=== PATIENT | female | born 1930 | race Caucasian/White ===

== ENCOUNTER 2017-02-08 10:54 | Inpatient (IN) | payer MEDICARE, OTHER ==
[~2017-02-08] VITALS: Ht 134.6 cm; Wt 45.3 kg
[~2017-02-08 10:54] MED LIST: ALBU8.5H4 IH; ATEN50TA7 PO; CALCIT PO; DICY20TA10 PO; ERGO400C PO; HYDROCHLOROTHIAZIDE PO; [UNRECOGNIZED DRUG - OTHER] PO; excedrin PO
[2017-02-08 11:00] VITALS: BP 163/90; PULSE 79; RESP 16; O2SAT 100
--- NOTE | 2017-02-08 11:26 | ED.REPORT ---
HPI-Trauma Minor / Fall Date of Service Feb 08, 2017 ED Provider: Joel Vigil MD 86 y/o female with a hx of diverticulitis, arthritis and anxiety presents to the ED complaining of left hip pain radiating to her left thigh, secondary to a ground level fall upon tripping over her bed spread, approximately 3 hours ago. Pt was not able to get up on her own due to the pain. Pt reports soreness around the injury but denies numbness, tingling, LOC, headache, nausea, vomiting , chest pain or ABD pain. Pt doesn't take any blood thinners. Nursing Notes Stated Complaint: GL FALL Chief Complaint: Extremity Trauma Nursing Notes Reviewed: Yes Allergies: Coded Allergies: Sulfa (Sulfonamide Antibiotics) (Verified Allergy, Intermediate, Rash, Itching,, 02/08/17) cyclosporine (Verified Adverse Reaction, Intermediate, WORSENING VISION, ) Scheduled Amlodipine (Amlodipine) 5 Mg Tablet 5 MG PO DAILY Ascorbic Acid (Vitamin C) 250 Mg Tab.chew 250 MG PO QID Aspirin Chew (Aspirin Chew) 81 Mg Chew 81 MG PO DAILY Atenolol (Atenolol) 50 Mg Tablet 50 MG PO BID Clorazepate Dipotassium (Clorazepate Dipotassium) 7.5 Mg Tablet 7.5 MG PO HS Erythromycin Ophth Oint (Erythromycin Ophth Oint) 3.5 Gm Oint...g. 1 APPL OP HS Hydrochlorothiazide (Hydrochlorothiazide) 25 Mg Tablet 12.5 MG PO DAILY Mineral Oil/Petrolatum,White (Refresh P.m. Ointment) 3.5 Gm Oint...g. 3.5 GM OP DAILY Multivits-Min/FA/Lycopene/Lut (Centrum Silver Tablet) 1 Each Tablet 1 EACH PO DAILY Scheduled PRN Albuterol HFA (Proair HFA) 8.5 Gm Hfa.aer.ad 2 PUFFS INHALATION Q4H PRN PRN For Shortness of Breath General Time Seen by MD: 11:22 Chief Complaint Fall Hx Obtained From: Patient Arrived By: Walk-in Onset Occurred: 1 - 4 hours ago Symptom Duration: Since onset Caused by: Fall on ground Location: Hip left Quality: Painful Severity: Current: Moderate Severity: Maximum: Moderate Recent Healthcare: No recent doctor visit Similar Sx Previous: No Past Medical History Past Medical History Diverticulitis Arthritis Anxiety Cataracts Past Surgical History Resection of colon Reports: Appendectomy, Cataract surgery, Hysterectomy Smoking History Unknown if Ever Smoker Social History Other Social History: Good social support Ambulatory Status Independent Review of Systems Musculoskeletal: Reports: Extremity pain, Joint pain Neurologic: Denies: Change LOC, Headache, Numbness Complete sys rev & neg: except as marked. Cardiovascular: Denies: Chest pain GI: Denies: Abdominal pain, Nausea, Vomiting Physical Exam Initial Vital Signs Vital Signs (First) Date Time Temp Pulse Resp B/P Pulse Ox O2 Delivery O2 Flow Rate FiO2 02/08/17 11:00 36.4 79 16 163/90 100 Room Air Initial VS: Reviewed, Vital signs normal Head / Eyes: Atraumatic, Normocephalic, PERRL ENT: Mucous membranes moist, Conjunctiva normal, No scleral icterus Respiratory: Breath sounds normal, Clear to auscultation, No respiratory distress Abdomen / GI: Soft, Non-tender, No guarding, No rebound, No distention Skin: Warm, Dry, No cyanosis Neurologic: Alert, Oriented, Nonfocal Psychiatric: Mood/affect normal, Behavior normal, Normal thought content General/Constitutional: Awake, Alert, No acute distress, Cooperative, Not toxic appearing IV in pt's left AC. Neck: Atraumatic, Full range of motion, No swelling, Non-tender, No midline vertebral tend Head / Eyes: Atraumatic, Normocephalic Scalp, face and neck atraumatic. Cardiovascular: Heart rate NL, Regular rhythm, Heart sounds NL, No gallop, No murmurs, No rubs Left foot DP and PT pulse normal Upper Extremity / MS: Atraumatic (Bilaterally ), Full range of motion Wrist / Hand: Atraumatic, Full range of motion Lower Extremity / Pelvis / MS: Atraumatic, No swelling, Neurologic intact, Vascular intact Right lower extremity atraumatic with passive ROM. Tender over left greater trocahanter. No deformity over the Left hip. Left foot atraumatic. Left tib/fib and knee atraumatic. Left lateral thigh tenderness. Ankle / Foot: Atraumatic, Full range of motion Interpretation & Diagnostics Lab Results Interpretation Result Diagram: 02/08/17 1238 02/08/17 1238 Test 02/08/17 12:38 02/08/17 12:51 02/08/17 13:35 White Blood Count 18.0th/mm3 (3.8-10.1) Red Blood Count 4.84mil/mm3 (3.90-5.20) Hemoglobin 14.3g/dL (12.0-15.6) Hematocrit 41.2% (35.0-46.0) Mean Corpuscular Volume 85.1fL (81-100) Mean Corpuscular Hemoglobin 29.5pg (27.0-35.0) Mean Corpuscular Hemoglobin Concent 34.7% (32.0-37.0) Red Cell Distribution Width 14.3% (12.3-15.4) Platelet Count 273bil/L (150-400) Neutrophils (%) (Auto) 87.0% (40-74) Lymphocytes (%) (Auto) 4.6% (14-46) Monocytes (%) (Auto) 7.8% (4-12) Eosinophils (%) (Auto) 0.1% (0-5) Basophils (%) (Auto) 0.2% (0-3) Prothrombin Time 10.4sec (8.1-12.5) Prothromb Time International Ratio 0.97ratio Sodium Level 137mEq/L (134-144) Potassium Level 3.1mEq/L (3.5-5.2) Chloride Level 96mEq/L (97-108) Carbon Dioxide Level 26mmol/L (18-29) Blood Urea Nitrogen 12mg/dL (8-27) Creatinine 0.49mg/dL (0.57-1.00) Estimat Glomerular Filtration Rate 172mL/min (>59) Glucose Level 132mg/dL (60-99) Calcium Level 9.7mg/dL (8.5-10.1) Total Bilirubin 0.5mg/dL (0.0-1.2) Aspartate Amino Transf (AST/SGOT) 21U/L (0-50) Alanine Aminotransferase (ALT/SGPT) 15U/L (0-32) Alkaline Phosphatase 108U/L (25-165) Total Protein 7.2g/dL (6.4-8.4) Albumin 4.6g/dL (3.4-5.0) Hold Pettit Top Tube Received (Received) Urine Color Straw (YELLOW) Urine Appearance Hazy (CLEAR,HAZY) Urine pH 7.5 (5.0-8.0) Urine Specific [place] 1.015 (1.003-1.035) Urine Protein Negativemg/dL (NEG,TRACE) Urine Glucose (UA) Negativemg/dL (NEGATIVE) Urine Ketones Negativemg/dL (NEGATIVE) Urine Occult Blood Negative (NEGATIVE) Urine Nitrite Negative (NEGATIVE) Urine Bilirubin Negative (NEGATIVE) Urine Urobilinogen Normalmg/dL (NORMAL) Urine Leukocyte Esterase Negative (NEGATIVE) Urine RBC 0-2/hpf (0-2) Urine WBC 0-5/hpf (0-5) Urine Epithelial Cells Occasional/hpf (NONE-MOD) Urine Crystals Amorphous phosphates Urine Bacteria None/hpf (NONE-FEW) Urine Hyaline Casts None/lpf (NONE) Urine Granular Casts None seen (NONE SEEN) Urine Waxy Casts None seen (NONE SEEN) Urine Red Blood Cell Casts None seen (NONE SEEN) Urine White Blood Cell Casts None seen (NONE SEEN) Urine Mucus None seen (None Seen) Urine Trichomonas None seen (NONE SEEN) Urine Yeast None (NONE SEEN) Urinalysis Comment None Urine Culture Reflexed Not indicated ECG Interpretation ECG Interpretation: Normal sinus rhythm. Rate 83 Normal axis Normal interval Borderline ST depression about vivian-lateral leads No QT abnormality No prior EKG for comparison Time: 13:32 Interpreted by: ED physician X-Ray Chest Interpretation Chest Xray Interpretation: IMPRESSION: No acute cardiopulmonary disease. Dictated by: Marie Marsh M.D. on 02/08/2017 at 13:24 Approved by: Marie Marsh M.D. on 02/08/2017 at 13:29 View: Portable, 1 view Interpretation / Wet Read by: Interpret - Radiologist X-Ray Interpretation Xray Interpretation: PROCEDURE: X-RAY PELVIS, ONE OR TWO VIEWS ([id number]) IMPRESSION: Moderately displaced left femoral neck fracture. Dictated by: Armin Jett M.D. on 02/08/2017 at 13:09 Approved by: Armin Jett M.D. on 02/08/2017 at 13:09 X-Ray Ordered: Pelvis Interpretation / Wet Read by: Interpret - Radiologist Xray Interpretation: IMPRESSION: Left femoral neck fracture. Dictated by: Armin Jett M.D. on 02/08/2017 at 13:10 Approved by: Armin Jett M.D. on 02/08/2017 at 13:10 X-Ray Ordered: Femur left Interpretation / Wet Read by: Interpret - Radiologist Re-Eval/Medical Decision Med Decision/Clinical Course 86 y/o female with a hx of diverticulitis, arthritis and anxiety presents to the ED complaining of left hip pain radiating to her left thigh, secondary to a GL fall upon tripping over the bed spread, approximately 3 hours ago. Pt was not able to get up on her own due to the pain. Pt reports soreness around the injury but denies numbness, tingling, LOC, headache, nausea, vomiting, chest pain and ABD pain. Pt doesn't take any blood thinners. She did not strike her head. Here in the emergency department she is in moderate pain and was treated with IV hydromorphone and IV fluids as well as Zofran for nausea. X-ray of her left hip demonstrated a moderately displaced femoral neck fracture. She had good DP and PT pulses in the affected extremity without any evidence of neurovascular deficit. These findings were discussed with Dr. Kim with orthopedic surgery who requested the patient be admitted to the hospitalist service and made nothing by mouth at midnight with plan for operative intervention in the morning. Laboratory studies are notable as below: Leukocytosis of 18, I suspect that this is due to demarginalization as I see no evidence at this time of any acute infectious process in the patient is afebrile. CBC: unremarkable CMP: notable for Potassium = 3.1 but otherwise unremarkable. Coagulation studies = normal The patient's hypokalemia was treated with 20 mEq of IV potassium chloride. Patient was made nothing by mouth at midnight and placed on maintenance fluids. At this time she is otherwise well and in no apparent distress. Her pain has been well managed. She was discussed with the admitting hospitalist and transferred in stable condition with plan for operative intervention. Re-Evaluation/Progress : Time of Eval: 12:00 Re-Evaluation/Progress Note: Pt rechecked. Informed the pt of imaging results, diagnosis and plan to admit. Pt understood and agreed witht the plan. F/U and RTER instructions given. All questions answered. Consultation #1: Referral / Consult Name: Shyam Kim MD Consulted With: Orthopedic Call Returned at: 13:26 Architectural Renderer: Will see patient, Agrees with eval, Agrees with plan Note: Dr. Kim recommends NPO at midnight and plan for surgery tomorrow. Consultation #2: Referral / Consult Name: Alejandra Cruz DO Consulted With: Hospitalist Call Returned at: 14:37 Architectural Renderer: Agrees with eval, Agrees with plan, Accepts admit Counseled Regarding: Diagnosis, Lab results, Need for admission Discharge & Departure Impression: Primary Impression: Hip fracture, left Encounter type: initial encounter Fracture type: closed Qualified Code: S72.002A - Fracture of unspecified part of neck of left femur, initial encounter for closed fracture Additional Impressions: Fall from ground level Left hip pain Leukocytosis Leukocytosis type: unspecified Qualified Code: D72.829 - Elevated white blood cell count, unspecified Hypokalemia Disposition: ADMITTED TO HOSPITAL Discharge Condition All VS Reviewed: Yes Referrals: Filiberto Frye DO (PCP) Scribe Attestation Portions of this note were transcribed by Arthur Altamirano and Tita Oakes . I, personally performed the history, physical exam and medical decision-making;I reviewed and confirmed the accuracy of the information in the transcribed note. Signed by Arthur Altamirano and Tita Oakes, Angelae. 02/08/17. 1503. copies to: Filiberto Frye Beck O MD Feb 08, 2017 11:26 Arthur Altamirano Feb 08, 2017 11:43 Tita Oakes Feb 08, 2017 15:01
[2017-02-08] MEDS ORDERED: FOLI1TAB5 PO (11:37)
[2017-02-08] MEDS ORDERED: ASPI81TA3 PO (11:37)
[2017-02-08] MEDS ORDERED: PETR3.5O OP (11:37)
[2017-02-08] MEDS ORDERED: AMLO5TAB2 PO (11:37)
[2017-02-08] MEDS: HYDROmorphone 0.5 mg/0.5 mL iSecure Syringe IVPUSH PRN ×3 (12:34→16:12)
[2017-02-08 12:41] LABS: BASOPHILS % (AUTO) 0.2 % (0-3); EOSINOPHILS % (AUTO) 0.1 % (0-5); MONOCYTES % (AUTO) 7.8 % (4-12); Mean Corpuscular Hemoglobin 29.5 pg (27.0-35.0); Mean Corpuscular Volume 85.1 fL (81-100); Platelet Count 273 bil/L (150-400)
[2017-02-08 12:57] LABS: INR 0.97 ratio
--- NOTE | 2017-02-08 13:11 | DRSVH ---
PROCEDURE: X-RAY PELVIS, ONE OR TWO VIEWS ([id number]) INDICATIONS: 86 year-old female with left hip pain after fall. TECHNIQUE: One view(s) of the pelvis acquired. COMPARISON: None. FINDINGS: Bones: Moderately displaced left femoral neck fracture is present, with varus angulation of the femor al shaft. Pelvic ring appears intact. Soft tissues: Scattered abdominal surgical clips are present. Visualized bowel gas pattern is normal . No suspicious soft tissue calcifications. IMPRESSION: Moderately displaced left femoral neck fracture. Dictated by: Armin Jett M.D. on 02/08/2017 at 13:09 Approved by: Armin Jett M.D. on 02/08/2017 at 13:09
--- NOTE | 2017-02-08 13:12 | DRSVH ---
PROCEDURE: X-RAY LEFT FEMUR, TWO VIEWS ([id number]) INDICATIONS: 86 year-old female with left hip fracture after fall. TECHNIQUE: 2 views of the femur were acquired. COMPARISON: None. FINDINGS: Bones: Left femoral neck fracture is again noted, more apparent on comparison AP pelvis. No suspiciou s lytic or blastic bony lesions. Soft tissues: No suspicious soft tissue calcifications or masses. IMPRESSION: Left femoral neck fracture. Dictated by: Armin Jett M.D. on 02/08/2017 at 13:10 Approved by: Armin Jett M.D. on 02/08/2017 at 13:10
[2017-02-08] MEDS: Lactated Ringer's 1,000 ML IV SCH ×2 (13:25→22:28)
[2017-02-08] MEDS ORDERED: Alum-Mag Hydrox-Simeth 30 mL Suspension PO PRN ×2 (13:25→16:55)
[2017-02-08] MEDS ORDERED: Ondansetron 2 mg/mL 2 mL Inj IVPUSH PRN ×2 (13:25→16:55)
[2017-02-08] MEDS ORDERED: KCl 40 mEq/D5W 500 mL 20 MEQ in IV Premix 1 EACH IV ONE (13:30)
--- NOTE | 2017-02-08 13:30 | DRSVH ---
PROCEDURE: X-RAY CHEST ONE VIEW ([id number]) INDICATIONS: FELL; HIP FRACTURE, PREOPERATIVE TECHNIQUE: One view of the chest was acquired. COMPARISON: [facility], CT, CHEST W/O CONTRAST, 08/17/2013, 10:58. [facility], CR, CHEST 2VW, 02/09/2013, 9:06. FINDINGS: Surgical changes and devices: None. Lungs and pleura: Hyperinflation suggesting COPD. There are right apical scars. No pleural effusion s or pneumothorax. Lungs are clear. Mediastinum: Mediastinal contours appear normal. Heart size is normal. Bones and chest wall: No suspicious bony lesions. Overlying soft tissues appear unremarkable. IMPRESSION: No acute cardiopulmonary disease. Dictated by: Marie Marsh M.D. on 02/08/2017 at 13:24 Approved by: Marie Marsh M.D. on 02/08/2017 at 13:29
[2017-02-08 13:42] VITALS: BP 143/76; PULSE 84; RESP 16; O2SAT 94
[2017-02-08 13:52] LABS: APPEARANCE,URINE HAZY (CLEAR,HAZY); COLOR,URINE STRAW (YELLOW); OCCULT BLOOD,URINE NEGATIVE (NEGATIVE); PH,URINE 7.5 (5.0-8.0); UROBILINOGEN,URINE NORMAL (NORMAL)
[2017-02-08] MEDS ORDERED: ALBU8.5H2 INHALATION (15:20)
[2017-02-08] MEDS ORDERED: HYDR25TA4 PO (15:20)
[2017-02-08] MEDS ORDERED: ATEN50TA PO (15:20)
[2017-02-08] MEDS ORDERED: CLOR7.5T3 PO (15:20)
[2017-02-08] MEDS ORDERED: MULT-1073 PO (15:21)
[2017-02-08] MEDS ORDERED: ERYT1OIN7 OP (15:21)
[2017-02-08] MEDS ORDERED: ASCO250T7 PO (15:22)
[2017-02-08 15:30] VITALS: BP 135/60; PULSE 83; RESP 16; O2SAT 96
[2017-02-08 15:35] VITALS: BP 149/73; PULSE 84; RESP 17; O2SAT 96
--- NOTE | 2017-02-08 15:36 | NUR ---
TO [facility] patient transfer from ER to [facility]. Report received from ER nurse. patient is still in the ER.
--- NOTE | 2017-02-08 16:04 | NUR ---
To [facility] patient arrived approx 1550 to [facility].
[2017-02-08 16:52] VITALS: BP 146/75; PULSE 77; RESP 18; O2SAT 92
[2017-02-08] MEDS ORDERED: Polyethylene Glycol (PEG) 17 Gm Powder PO PRN (16:55)
[2017-02-08] MEDS ORDERED: HYDROcodone-APAP 5-325 mg Tablet PO PRN (16:55)
[2017-02-08] MEDS ORDERED: HYDROmorphone 0.5 mg/0.5 mL iSecure Syringe IVPUSH PRN (17:05)
[2017-02-08] MEDS ORDERED: Potassium Chloride 20 mEq SR Tablet PO ONE (17:10)
--- NOTE | 2017-02-08 17:20 | PCM.HPMED ---
Subjective Date of Service Feb 08, 2017 Primary Provider: Admitting Physician: Janett Qureshi MD Primary Care Physician: Filiberto Frye DO Attending Physician: Janett Qureshi MD Admit Status: From the Emergency Department Chief Complaint: Fall with subsequent left hip pain History of Present Illness: Earlier today she was making the bed and tripped on a part of the bedspread that was down on the floor. She fell and immediately noted left hip pain. She is not aware of any other injuries and says she did not hit her head. Prior to falling and she did not note lightheadedness, loss of consciousness, palpitations or chest pain. Review of Systems: It is unremarkable, no recent acute illnesses or other complaints. Allergies Coded Allergies: Sulfa (Sulfonamide Antibiotics) (Verified Allergy, Intermediate, Rash, Itching,, 02/08/17) cyclosporine (Verified Adverse Reaction, Intermediate, WORSENING VISION, ) Home Medications Patient is not able to list her medications, see med reconciliation PMH Hypertension Chronic anxiety and/or insomnia Bronchiectasis (per patient) Diverticulitis Denies any heart disease or diabetes Surgical History Colectomy for diverticular disease ADRIAN BSO Appendectomy "eye plugs" - apparently to tear ducts Family History Father in his 60s of an PR Mother had severe arthritis and in the detention when her "heart gave out" Social History Hx Alcohol Use: No Hx Substance Use: No Hx Tobacco Use: No Smoking Status: Unknown if Ever Smoker Additional Information Has been 57 years, has one daughter living in [place] but she is currently vacationing in [place] Exam Vital Signs Vital Sign - Last Date Time Temp Pulse Resp B/P Pulse Ox O2 Delivery O2 Flow Rate FiO2 02/08/17 16:52 37.1 77 18 146/75 92 Room Air Exam General: Alert and oriented, no acute distress HEENT: unremarkable Neck: No JVD, carotids 1+ Heart: Regular, no extra sounds heard Lungs: Clear anteriorly and laterally Abdomen: Soft, non-tender, bowel tones present, no masses or apparent palatal splenomegaly Extremities: No pedal edema Neuro: No apparent deficits, and carousel attendant are strong and equal Lab and Diagnostics Result Diagram: 02/08/17 1238 02/08/17 1238 12-lead ECG I am unable to find a copy of her EKG but by ED physician report that shows normal sinus rhythm and some questionable mild ST depression Assessment & Plan # Left femoral neck fracture - surgery is planned for tomorrow - NPO after midnight - will hold amlodipine and HCT - per request of ortho T&C for 2 units, and Ancef 2 mg IV for OR ordered - SCD's for DVT prophylaxis, then as per ortho after surgery # Hypokalemia, most likely due to HCTZ - hold HCTZ until improved - IVF NS w 40 KCl at 100 per hr (pharmacist will order) - oral dose this isabell if she can tolerate (having some nausea with narcotics) - recheck in am # Leukocytosis, may be reactive due to stress, no evidence of infection, UA and CXR negative - recheck in am # Mildly elevated RBS - recheck in am # Chronic HTN - as noted above hold Amlodipine prior to surgery tomorrow and hold HCTZ until K improves - cont Atenolol # "Anxiety" (per patient) vs Chr insomnia - Cont Chloraxepate VTE Mechanical Devices: Intermittant Pneumatic CD Resuscitation Status: CPR: Attempt Resuscitation Janett Qureshi MD Feb 08, 2017 17:20
[2017-02-08] MEDS ORDERED: CeFAZolin Inj 1 GM in IV Premix 1 EACH IV ONE (17:30)
[2017-02-08] MEDS: Potassium Chloride Inj 40 MEQ in 0.9% Sodium Chloride 1,000 ML IV SCH (17:46)
--- NOTE | 2017-02-08 17:50 | NUR ---
mentation patient is alert and oriented X3. Able to make needs known. C/o left hip pain 10/10 and nausea. PRN Dilaudid and anti emetic given as ordered with effective results. patient is eating meal at bed side. IV fluids as ordered. patient NPO after mid night. Dr. Kim at bed side. per doctor surgery tomorrow at 930. patient aware. ICe to left hip.
--- NOTE | 2017-02-08 19:05 | CONS ---
[address] [address] CONSULTATION REPORT PATIENT: WILLOW ATKINS : 1930 MR#: [id number] ADMIT: 02/08/2017 JOB ID: [id number] DATE OF SERVICE: 02/08/2017 CPT code 13579-98, decision for surgery. CHIEF COMPLAINT: This is an 86-year-old female, whom I was asked to see by the emergency department staff as well as by Dr. Janett Qureshi for displaced left femoral neck fracture. The patient was making her bed, tripped over the bedspread, and fell to the floor, sustaining a displaced left femoral neck fracture. The patient denies any loss of consciousness. She is brought to the emergency department. There was no evidence of any syncopal event and she denied any dizziness prior to falling. ALLERGIES: 1. SULFONAMIDE and with rash. 2. She also has allergy to CYCLOSPORINE. 3. RESTASIS. MEDICATIONS: The patient takes amlodipine, vitamin C, chewable aspirin 81 mg a day, atenolol, clorazepate di-potassium, erythromycin ophthalmic ointment, hydrochlorothiazide, mineral oil, petroleum eye ointment for dry eye, and multiple vitamin. P.r.n. medications include an albuterol inhaler. PAST MEDICAL HISTORY: The patient has history of diverticulitis, arthritis, anxiety, and prior history of cataracts. PRIOR SURGERY HISTORY: He has had an appendectomy, cataract surgery, and hysterectomy. Smoking history unknown. REVIEW OF SYSTEMS: HEENT: Denies any blurring of vision or dizziness. Does have a history of dry eyes. Her mouth is currently dry since she did have some medication for nausea. Respiratory: No shortness of breath. Cardiovascular: No chest pain. GI: She does have some nausea but no vomiting. Musculoskeletal: Left hip pain with a left femoral neck fracture. Neurologic. The patient appears to be oriented. No headache or dizziness. Psychiatric: No anxiety or depression clinically at this time. PHYSICAL EXAMINATION: 134 cm, 45 kg female. Temperature 37.1, pulse 77, respiration 18, blood pressure 146/75, pulse ox 92 on room air. The patient is alert and oriented. She does have some nausea with the recent medications. Lower extremities: Good peripheral circulation. Left hip: Skin is dry and intact. Left leg is shortened and rotated. The patient appears to be resting comfortably in bed. Patient is able to move her toes. She denies any numbness or tingling. LABORATORY TESTING: White count of 10,000, hemoglobin 14.3, hematocrit 41.2, platelet count 273,000. PT 10.4. INR and 0.97. Sodium 137, potassium 3.1. The patient has been ordered some potassium. Chloride 96, CO2 26, BUN 12, creatinine 0.49, glucose random 132. Liver function tests within normal limits. Urinalysis: Specific gravity 1.015, pH 7.50, 0-5 white cell, 0-2 red blood cells. No bacteria. Patient had EKG in the emergency department. She had normal sinus rhythms, normal interval. No QT abnormality. Chest x-ray: No acute cardiopulmonary disease. X-rays of the pelvis and hip show that she has a displaced left femoral neck fracture. Femur films show the remaining portion of the femur is intact. IMPRESSION: Displaced left femoral neck fracture. PLAN: I have informed the patient for the risks and benefits of surgery. No guarantees are made. I have explained the risks for bleeding, infection, pain, and stiffness, possibility for damage to surrounding neurovascular structures, potential for dislocation of the prosthesis and even a fracture of the femur during the procedure as well as even the potential for dislocation of the prostheses or fracture below the prosthesis if the patient should fall again. There is also potential for DVT, pulmonary emboli, [place], and other significant cardiopulmonary event or even stroke. The goal is to replace the femoral head and give the patient a hemiarthroplasty that she may be able to ambulate on soon postoperatively. I have explained the risks and benefits of surgery to the patient. She has agreed to the above and consent has been signed. I have discussed the case with the hospitalist, Dr. Janett Qureshi and she will make the patient n.p.o. after midnight. The patient will also be ordered Ancef 2 g IV to be given preoperatively in the operating room tomorrow. She should be placed on SCDs for DVT prophylaxis and postoperatively she may be started on subcu Lovenox or subcu heparin for DVT prophylaxis as well as the SCD compression pumps. We will proceed with the surgery tomorrow. The patient is somewhat dehydrated. Will get some IV fluid tonight as well. CC: [facility]
[2017-02-08 19:45] VITALS: BP 148/76; PULSE 74; RESP 16; O2SAT 94
[2017-02-08] MEDS ORDERED: Albuterol 2.5 mg/3 mL Inhalation Solution NEB PRN (20:00)
[2017-02-08] MEDS: ALPRAZolam 0.5 mg Tablet PO SCH (21:13)
[2017-02-08] MEDS: Ascorbic Acid 500 mg Tablet PO SCH (21:15)
[2017-02-09] VITALS (10 sets, daily range): BP systolic 99–148; BP diastolic 63–81; PULSE 62–89; RESP 10–18; O2SAT 93–97
[2017-02-09] MEDS: Potassium Chloride Inj 40 MEQ in 0.9% Sodium Chloride 1,000 ML IV SCH (03:49)
[2017-02-09] MEDS: Ascorbic Acid 500 mg Tablet PO SCH ×4 (05:44→21:54)
[2017-02-09 06:26] LABS: Mean Corpuscular Hemoglobin 29.3 pg (27.0-35.0); Mean Corpuscular Volume 85.1 fL (81-100)
[2017-02-09] MEDS ORDERED: CeFAZolin Inj 2,000 MG in Dextrose 5% 50 ML IV ONE (09:00)
--- NOTE | 2017-02-09 10:02 | NUR ---
Pre-Op/Pain Patient reports pain only with movement, declines pain meds at this time. Dr. Kim in room for pre-op visit and consent with patient at this time. Marked operative site and patient agreeable to plan. IVF NS+40K @100mls/hr currently infusing. Awaiting OR report.
[2017-02-09] MEDS: Lactated Ringer's 1,000 ML IV SCH ×2 (10:21→16:45)
--- NOTE | 2017-02-09 10:45 | NUR ---
Off Unit Patient to OR at this time.
[2017-02-09] MEDS ORDERED: Lactated Ringer's 1,000 ML IV ONE ×2 (10:47→14:36)
[2017-02-09] MEDS ORDERED: Lactated Ringer's 1,000 ML IV SCH (12:18)
[2017-02-09] MEDS ORDERED: Lactated Ringer's 500 ML IV PRN (12:18)
--- NOTE | 2017-02-09 12:18 | PCM.HPANE ---
Patient Data Date of Service: Feb 09, 2017 Surgeon Admitting Provider:Janett Qureshi MD Attending Provider:Janett Qureshi MD Primary Care Physician:Filiberto Frye DO Other Provider: Reason for Visit Left Hip Fracture Ht/WT & BMI Height (Feet): 4 Height (Inches): 5.00 Weight (Kilograms): 45.000 Body Mass Index 24.69 Allergies Coded Allergies: Sulfa (Sulfonamide Antibiotics) (Verified Allergy, Intermediate, Rash, Itching,, 02/08/17) cyclosporine (Verified Adverse Reaction, Intermediate, WORSENING VISION, ) Past Anesthesia History Anesthesia History: Denies:: Anesthesia Reactions Diabetes History Hx Diabetes?: No MRSA MRSA: No Medications Hypertension Medication: Yes Home Meds Incl Beta Kristie: Yes Date Beta Kristie Taken: Feb 08, 2017 Time Beta Kristie Taken: 20:00 Reported Medications Ascorbic Acid (Vitamin C)250 Mg Tab.sktr583 Mg PO QID 30 Days Ref 0 02/08/17 Multivits-Min/FA/Lycopene/Lut (Centrum Silver Tablet)1 Each Tablet1 Each PO DAILY 02/08/17 Erythromycin Ophth Oint 3.5 Gm Oint...g.1 Appl OP HS #1 TUBE Ref 0 02/08/17 Albuterol HFA (Proair HFA)8.5 Gm Hfa.aer.ad2 Puffs INHALATION Q4H PRN For Shortness of Breath #1 INHALER 02/08/17 Hydrochlorothiazide 25 Mg Ftqnsd69.5 Mg PO DAILY 30 Days Ref 0 02/08/17 Clorazepate Dipotassium 7.5 Mg Tablet7.5 Mg PO HS 02/08/17 Atenolol 50 Mg Dydfyr78 Mg PO BID #30 TABLET Ref 0 02/08/17 Aspirin Chew 81 Mg Chew81 Mg PO DAILY Ref 0 02/08/17 Mineral Oil/Petrolatum,White (Refresh P.m. Ointment)3.5 Gm Oint...g.3.5 Gm OP DAILY EYES 02/08/17 Amlodipine 5 Mg Tablet5 Mg PO DAILY Ref 0 02/08/17 Discontinued Reported Medications Folic Acid/Mv,Fe,Other Min (Centrum Chewable Tablet)1 Each Tab.chew1 Each PO DAILY 02/08/17 Ergocalciferol-Expunged Drug, Do Not Renew! (Vitamin D-Expunged Drug, Do Not Renew!)400 Unit Ypliphp256 Unit PO AM 08/16/11 Calcium Citrate-Expunged Drug, Do Not Renew! (Citrical-Expunged Drug, Do Not Renew!)250 Mg Ycgplp945 Mg PO AM 08/16/11 Albuterol-Expunged Drug, Do Not Renew! 8.5 Gm Hfa.aer.ad2 Puffs IH PRN 08/16/11 [excedrin] No Conflict Check2 Tab PO Q3-4HP 08/16/11 [clorazipate] No Conflict Check7.5 Mg PO HS 08/16/11 Dicyclomine-Expunged Drug, Do Not Renew! 20 Mg Znegnk60 Mg PO DAILY 08/16/11 [hydochlorothiazide] 25 No Conflict Check12.5 Mg PO DAILY 08/16/11 Atenolol-Expunged Drug, Do Not Renew! 50 Mg Uzrjin14 Mg PO BID 08/16/11 History History of ENT Problems?: Yes HEENT History: Positive for:: Cataracts (SURGERY) Dysphagia (SLIGHT DYSPHAGIA, NO CORRECTION) Denies:: Glaucoma Sinus Problem Denture Type: Full- Upper Teeth Condition: Tooth Decay Hx of Heart Problems?: Yes Cardiovascular History: Positive for:: Hypertension Denies:: Cardiac Surgery Chest Pain Congestive Heart Failure Edema Heart Murmur Irregular Heartbeat Pacemaker Thrombophlebitis Hx of Respiratory Problem?: Yes Respiratory History: Positive for:: Dyspnea Denies:: Asthma COPD Chest Surgery Emphysema Hemoptysis Pneumonia Tuberculosis Hx Neurologic Problems?: Yes Neurological History: Positive for:: Dizziness (RELATED TO MEDICINE SE) Denies:: Alzheimer's Disease CVA Dementia Headaches Parkinson's Disease Seizures Hx of GI Problems?: Yes Hx of Problems?: Yes Genitourinary History: Positive for:: Urinary Tract Infection Denies:: HX of Hemodialysis Kidney Stones HX of Peritoneal Dialysis: No Female Hx: Denies:: Currently Endometriosis Pelvic Inflammatory Problems with Breasts? Hx Musculoskeletal Problems?: Yes Musculoskeletal History: Positive for:: Musculoskeletal Trauma (FALL WITH L HIP FRACTURE) Denies:: Back Injury (NECK ARTHRITIS) Joint Replacement Hx of Psycho/Social Problems?: Yes Psycho Social History: Positive for:: Anxiety Hx Depression Denies:: Bipolar Disorder Suicide Attempt Hx Surgeries?: Yes (resection of colon, appendix, hysterectomy, cataract,) Hx Any Other Health Problems?: No Other History: Positive for:: Hospitalization (L HIP FRACTURE, DIVERTICULITIS) Denies:: Cancer Endocrine Disease Thyroid Disease History Blood Transfusions: Positive for:: Accept Blood Products? Blood Transfusions Denies:: Blood Transfuse Reaction Hx Diabetes: No Hx Alcohol Use: NoHx Substance Use: No Smoking Status: Unknown if Ever Smoker Have You Smoked inLast 12 mo: No Stop/Bang Treated for Sleep Apnea?: No Do You Have a CPAP Machine?: No S-Snoring: Do You Snore Loudly: Yes T-Tired: feel tired, fatigued: No O-Obsered: Observed not breath: No P-Blood Pressure: treated: Yes B- Body Mass Index > 35 kg/m2: No A- Age over 50: Yes N- Neck Large Circumference: No G- Gender Male: No KERLINE Total Score: 2 KERLINE Risk Assessment: Low Risk, <3 Yes Risk Assessment Category Category 1A: Patient has history of documented sleep apnea, and HAS NOT received any narcotic, sedative or anesthesia administration during this stay. Category 1B: Patient has history of documented sleep apnea, and HAS received any narcotic , sedative or anesthesia administration during this stay Category 2: Patient has SUSPECTED Obstructive Sleep Apnea, and HAS received any narcotic , sedative or anesthesia administration during this stay. Category 3: Patient has SUSPECTED Obstructive Sleep Apnea and HAS NOT received narcotic, sedative or anesthesia administration during this stay. Category 4: Outpatient in Procedural Areas with known sleep apnea or who screen positive for High Risk via the STOP/BANG questionnaire. Exam Exam Vital Signs Vital Signs Date Time Temp Pulse Resp B/P Pulse Ox O2 Delivery O2 Flow Rate FiO2 02/09/17 05:09 36.7 71 16 146/72 95 Room Air General Appearance: Alert HEENT/AIRWAY: MP 2 Lungs: Clear to Auscultation Heart: Exam Unremarkable Meds/Labs/Diagnostics Admission Meds Current Medications Lactated Ringer's 1,000 ml @ 100 mls/hr Q10H IV Last administered on 10:21; Start 02/08/17 at 13:25 Potassium Chloride In D5W 20 meq/Premix 250 ml @ 125 mls/hr Q2H ONCE IV Last administered on 02/08/17 14:10; Start 02/08/17 at 13:30; Stop 02/08/17 at 15:29 ; Status DC Potassium Chloride/Sodium Chloride (Potassium Chloride Inj/ Normal Saline) 1, 020 ml @ 100 mls/hr [id number] IV Last administered on 02/09/17 03:49; Start at 17:05 Atenolol (Tenormin) 50 mg BID PO Last administered on 02/08/17 21:13; Start at 20:30 Ascorbic Acid (Vitamin C) 250 mg QID PO Last administered on 02/08/17 21:15; Start 02/08/17 at 21:30 Alprazolam (Xanax) 0.5 mg HS PO Last administered on 02/08/17 21:13; Start at 21:00 Potassium Chloride (K-Dur) 20 meq ONCE ONCE PO Last administered on 02/08/17 17:46; Start 02/08/17 at 17:10; Stop 02/08/17 at 17:25; Status DC Labs Test 02/08/17 12:38 02/08/17 12:51 02/08/17 13:35 02/09/17 05:50 Neutrophils (%) (Auto) 87.0% (40-74) Lymphocytes (%) (Auto) 4.6% (14-46) Monocytes (%) (Auto) 7.8% (4-12) Eosinophils (%) (Auto) 0.1% (0-5) Basophils (%) (Auto) 0.2% (0-3) Prothrombin Time 10.4sec (8.1-12.5) Prothromb Time International Ratio 0.97ratio Total Bilirubin 0.5mg/dL (0.0-1.2) Aspartate Amino Transf (AST/SGOT) 21U/L (0-50) Alanine Aminotransferase (ALT/SGPT) 15U/L (0-32) Alkaline Phosphatase 108U/L (25-165) Total Protein 7.2g/dL (6.4-8.4) Albumin 4.6g/dL (3.4-5.0) Hold Pettit Top Tube Received (Received) Urine Color Straw (YELLOW) Urine Appearance Hazy (CLEAR,HAZY) Urine pH 7.5 (5.0-8.0) Urine Specific Viola 1.015 (1.003-1.035) Urine Protein Negativemg/dL (NEG,TRACE) Urine Glucose (UA) Negativemg/dL (NEGATIVE) Urine Ketones Negativemg/dL (NEGATIVE) Urine Occult Blood Negative (NEGATIVE) Urine Nitrite Negative (NEGATIVE) Urine Bilirubin Negative (NEGATIVE) Urine Urobilinogen Normalmg/dL (NORMAL) Urine Leukocyte Esterase Negative (NEGATIVE) Urine RBC 0-2/hpf (0-2) Urine WBC 0-5/hpf (0-5) Urine Epithelial Cells Occasional/hpf (NONE-MOD) Urine Crystals Amorphous phosphates Urine Bacteria None/hpf (NONE-FEW) Urine Hyaline Casts None/lpf (NONE) Urine Granular Casts None seen (NONE SEEN) Urine Waxy Casts None seen (NONE SEEN) Urine Red Blood Cell Casts None seen (NONE SEEN) Urine White Blood Cell Casts None seen (NONE SEEN) Urine Mucus None seen (None Seen) Urine Trichomonas None seen (NONE SEEN) Urine Yeast None (NONE SEEN) Urinalysis Comment None Urine Culture Reflexed Not indicated White Blood Count 10.2th/mm3 (3.8-10.1) Red Blood Count 4.51mil/mm3 (3.90-5.20) Hemoglobin 13.2g/dL (12.0-15.6) Hematocrit 38.4% (35.0-46.0) Mean Corpuscular Volume 85.1fL (81-100) Mean Corpuscular Hemoglobin 29.3pg (27.0-35.0) Mean Corpuscular Hemoglobin Concent 34.4% (32.0-37.0) Red Cell Distribution Width 14.4% (12.3-15.4) Platelet Count 238bil/L (150-400) Sodium Level 134mEq/L (134-144) Potassium Level 5.1mEq/L (3.5-5.2) Chloride Level 100mEq/L (97-108) Carbon Dioxide Level 22mmol/L (18-29) Blood Urea Nitrogen 10mg/dL (8-27) Creatinine 0.39mg/dL (0.57-1.00) Estimat Glomerular Filtration Rate 224mL/min (>59) Glucose Level 112mg/dL (60-99) Calcium Level 9.1mg/dL (8.5-10.1) Plan Impression Patient chart reviewed, patient interviewed and anesthestic plan with risks, benefits, and alternatives discussed, and informed consent obtained. ASA Physical Status: ASA2 Mod Systemic Disease Anesthetic Plan: SAB Bene/Risks/Altern/Consents: Yes HP Complete Prior to Induction: Yes Mark Lopez MD Feb 09, 2017 12:18
[2017-02-09] MEDS ORDERED: EPHEDrine Sulfate 50 mg/mL Inj IVPUSH PRN (12:20)
[2017-02-09] MEDS ORDERED: HYDROmorphone 1 mg/mL Inj IVPUSH PRN ×2 (12:20→14:40)
[2017-02-09] MEDS ORDERED: Phenylephrine 10,000 mCg/mL Inj IVPUSH PRN (12:20)
[2017-02-09] MEDS ORDERED: Ondansetron 2 mg/mL 2 mL Inj IVPUSH PRN ×2 (12:20→14:40)
[2017-02-09] MEDS ORDERED: MetoCLOpramide 5 mg/mL 2 mL Inj IVPUSH PRN (12:20)
[2017-02-09] MEDS ORDERED: fentaNYL-PF 50 mCg/mL 2 mL Inj IVPUSH PRN (12:20)
[2017-02-09] MEDS ORDERED: Dexamethasone 4 mg/mL Inj IVPUSH PRN (12:20)
--- NOTE | 2017-02-09 13:13 | DRSVH ---
PROCEDURE: X-RAY PELVIS ONE OR TWO VIEWS ([id number]) INDICATIONS: SURGERY PLACEMENT TECHNIQUE: Intra-operative view of the pelvis and hip acquired. COMPARISON: [facility], CR, XR PELVIS 1 OR 2VW, 02/08/2017, 12:32. FINDINGS: Bones: Intraoperative devices prior to placement of arthroplasty prostheses are in expected position s. No fractures or suspicious bony lesions. Soft tissues: Overlying surgical retractors are present, along with other intraoperative changes. IMPRESSION: Normal alignment of intraoperative devices are in preparation for placement of final comp onents of left total hip arthroplasty. Dictated by: Kal Cherry M.D. on 02/09/2017 at 13:11 Approved by: Kal Cherry M.D. on 02/09/2017 at 13:12
[2017-02-09] MEDS ORDERED: Bupivacaine 0.5%/EPI 50 mL Inj INFILTRATE ONE (13:34)
[2017-02-09] MEDS ORDERED: EPHEDrine/NS 5 mg/mL 5 mL Syringe ONE (13:37)
[2017-02-09] MEDS ORDERED: Phenylephrine 10,000 mCg/mL Inj ONE (13:37)
[2017-02-09] MEDS ORDERED: Propofol 10,000 mCg/mL 20 mL Inj ONE (13:37)
--- NOTE | 2017-02-09 14:12 | NUR ---
pt is in OR Addendum: 02/09/17 at 1412 by CRISTEL EUBANKS CNA Amended: Links added.
[2017-02-09] MEDS ORDERED: Polyethylene Glycol (PEG) 17 Gm Powder PO PRN (14:40)
[2017-02-09] MEDS ORDERED: hydrOXYzine Pamoate 25 mg Capsule PO PRN (14:40)
[2017-02-09] MEDS ORDERED: HYDROcodone-APAP 5-325 mg Tablet PO PRN (14:40)
[2017-02-09] MEDS ORDERED: Magnesium Hydroxide 10 mL Oral Concentration PO PRN (14:40)
[2017-02-09] MEDS ORDERED: diphenhydrAMINE 25 mg Capsule PO PRN (14:40)
[2017-02-09] MEDS ORDERED: Sodium Biphos-Phos 133 mL Enema RECTAL PRN (14:40)
--- NOTE | 2017-02-09 15:13 | DRSVH ---
PROCEDURE: X-RAY PELVIS W/LAT HIP (LT) ([id number]) INDICATIONS: status post left hip bipolar hemiarthroplasty TECHNIQUE: AP pelvis and lateral view of the left hip acquired. COMPARISON: [facility], CR, XR PELVIS 1 OR 2VW, 02/09/2017, 12:33. [facility], CR, XR FEMUR 2VW LT, 02/08/2017, 12:32. FINDINGS: Bones: Patient is status post left hip arthroplasty, with hardware components in expected positions. The hip joint appears congruent. The visualized bony structures appear intact. Soft tissues: Overlying postoperative changes are noted. No suspicious soft tissue densities. IMPRESSION: Normal alignment after left total hip arthroplasty. 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 Dictated by: Kal Cherry M.D. on 02/09/2017 at 15:11 Approved by: Kal Cherry M.D. on 02/09/2017 at 15:12
--- NOTE | 2017-02-09 15:24 | NUR ---
Social Work:attempted initial assessment: Data:Pt is a 86 y/o female who was admitted on 02/08/17 for left hip fracture per H&P. Pt's insurance is [employer] and PCP is Filiberto Frye DO. EMR reviewed. SW attempted to see pt at bedside, but pt currently at the OR. Pt will likely have PT evaluation tomorrow. Anticipate pt will need SNF at discharge. SW to follow up with pt and complete assessment tomorrow. SW will continue to follow. Assessment:Pt who is independent at baseline. Plan:SW to follow up with pt tomorrow post surgery for assessment. SW will continue to follow. VERNA Kaur
--- NOTE | 2017-02-09 15:56 | PCM.ANEP1 ---
Post Anesthesia Phase 1 PACU Phase 1 Assessment Date of Service: Feb 09, 2017 Vital Signs Vital Signs Date Time Temp Pulse Resp B/P Pulse Ox O2 Delivery O2 Flow Rate FiO2 02/09/17 15:27 36.5 74 16 95 Room Air 02/09/17 15:10 72 14 134/78 96 Room Air 02/09/17 15:00 68 14 120/75 97 Room Air 02/09/17 14:50 64 14 140/73 97 Room Air 02/09/17 14:40 62 16 129/76 97 Room Air 02/09/17 14:36 36.0 64 10 129/70 97 Room Air Anesthetic Administered: SAB Level of Alertness: Awake, talking Pain: No Pain Scale Score: 10 Nausea or Vomiting: No Cardiovascular Function and Hy: Yes Oxygen Delivery: Room Air Lungs: Clear to Auscultation Mark Lopez MD Feb 09, 2017 15:56
--- NOTE | 2017-02-09 16:04 | OP ---
[address] [address] OPERATIVE REPORT PATIENT: WILLOW ATKINS : 1930 MR#: [id number] ADMIT: 02/08/2017 JOB ID: [id number] DATE OF SURGERY: PREOPERATIVE DIAGNOSIS(ES): Displaced left femoral neck fracture. ICD - 10 Code S72.002A POSTOPERATIVE DIAGNOSIS(ES): ICD-10 Code S72.002A Displaced left femoral neck fracture. PROCEDURE: Left hip cemented bipolar hemiarthroplasty for treatment of femoral neck fracture. CPT code 89552C. SURGEON: hSyam Kim MD. ANESTHESIA: Spinal. CHEF KITCHEN MANAGER: ISAI Dyson. Can was an integral part of the procedure to help with retraction and positioning intraoperatively to place the prosthesis. IMPLANTS UTILIZED: Depuy Shackelford stem, #2 stem, 45 mm cup, 28 mm head, +1.5 neck, a small canal plug and central stabilizer tip. ESTIMATED BLOOD LOSS: 100 mL. DRAINS: None. COMPLICATIONS: None. INDICATIONS: This is an 86-year-old female who tripped over her bedspread, sustaining a ground-level fall and a displaced left femoral neck fracture. PROCEDURE: Under adequate spinal anesthetic, the patient was carefully placed on the operating room table in the right lateral decubitus position with the left hip up. Left hip was prepped and draped in sterile fashion. After appropriate time-out was called, incision was made for a posterolateral approach to the hip. Incision was carried down to the tensor fascia elana. Charnley retractor was placed in the wound. The piriformis tendon and external rotators were identified as well as the sciatic nerve. The piriformis tendon was released off the proximal femur and tagged with a suture for later repair. A portion of the external rotators was also tagged and released off the proximal femur for later repair. The hip capsule was then incised in a T-fashion for later repair. The femoral head was then removed from the acetabulum with a corkscrew. There did not appear to be any acetabular damage. Any small bone fragments were also removed.It was sized to a 45 mm head. Attention was next turned to the proximal femur. Some soft tissue was removed from the proximal portion of the femur around the neck. The femoral neck was then cut with the alignment guide. The box toe buffer was used initially to lateralize the cut. The medullary canal was then reamed with the canal reamer and then utilizing the lateralizer that was reamed over the edge of the greater trochanter. The patient had a relatively small canal. First, a #1 rasp was utilized and then a #2 rasp, and tis seemed to fill the canal relatively well with no motion. Previously, the removed femoral head was sized and it was felt that a 45 mm cup would be the best size. A 45 mm cup was then tried with a +1.5 neck length and then reduced into position. This appeared to be stable with passive range of motion of the hip with no instability. The prosthetic components were subsequently removed. The femoral canal was irrigated and brushed with a canal brush. The level of the implant was sized in order to place the central canal plug in appropriate position. The canal plug was placed in the femur. Again, the canal was slightly irrigated and then it was dried with a canal sponge. The SmartSet bone cement with moderate viscosity was utilized, using two bags of cement. It was placed in the femoral canal and utilized with the cement gun. The cement was subsequently pressurized. The prosthesis was cemented into position in the proper amount of anteversion. Also please note that after the initial femoral cut was made, the femoral cut was smoothed with the calcar reamer. Any excess cement was subsequently removed. Once the cement had hardened, again the acetabulum was irrigated and the soft tissues were irrigated for any loose cement. The 45 mm bipolar cup with the +1.5 mm neck and the 28 mm head were then tapped into position. The hip was reduced and placed through a range of motion and felt to be stable. The hip capsule was then repaired with interrupted [id number]-ka-[id number] sutures of #1 Ethibond. The hip was then placed on Hyman stand with a pillow in slight abduction. The external rotators were reattached with Ethibond to the edge of the femur and the piriformis tendon was repaired to the edge of the of the femur with Ethibond. Care was taken to protect the sciatic nerve throughout the procedure. Also note that an intraoperative x-ray was taken with a temporary prostheses in position, noting good position of the femoral cut and position of the prosthesis. The subcutaneous layers were irrigated with antibiotic solution. The tensor fascia elana was closed with hxesqj-da-eqpwe sutures of #1 Vicryl. This soft tissue superficial layers were closed with interrupted sutures of 0 and 2-0 Vicryl, and the skin was reapproximated with a running subcuticular suture of 3-0 V-Loc suture. Mastisol and Steri-Strips were applied. Dry sterile dressing was applied. The patient was carefully taken off the table and placed in a hip abduction pillow. The patient tolerated the procedure well. Permanent x-rays in the recovery room confirmed good position of the prosthesis. PLAN: The patient may be out of bed tomorrow and she may start therapy for ambulation, partial weightbearing with walker. She will receive postoperative DVT prophylaxis as well as postoperative antibiotics. The patient may be seen again in the office in two weeks for wound check by one of the PAs and I will see her back in followup in six weeks. Will need x-rays on followup. CC: [facility] CC: Evgeny Castro
--- NOTE | 2017-02-09 16:12 | PCM.PNMED ---
Subjective Date of Service Feb 09, 2017 Subjective Just returning from surgery, no other complaints other than feeling quite cold. Exam Vital Signs Vital Sign - Last Date Time Temp Pulse Resp B/P Pulse Ox O2 Delivery O2 Flow Rate FiO2 02/09/17 15:56 Room Air 02/09/17 15:27 36.5 74 16 95 02/09/17 15:10 134/78 Intake and Output 02/08/17 02/08/17 02/09/17 Cumulative From/Thru 15:00 23:00 07:00 02/08/17 11:00 - 02/09/17 06:11 Intake Total 1433 ml 1433 ml Output Total 520 ml 520 ml Balance 913 ml 913 ml Intake Oral 246 ml 246 ml IV Total 1187 ml 1187 ml Output Urine Total 520 ml 520 ml # Bowel Movements 0 0 Exam Alert and oriented Heart regular Lungs clear anteriorly and laterally IVs and Medications Medications Reviewed: Medications were reviewed in detail Lab and Diagnostics Result Diagram: 02/09/17 0550 02/09/17 0550 12-lead ECG I am unable to find a copy of her EKG but by ED physician report that shows normal sinus rhythm and some questionable mild ST depression Assessment & Plan # Left femoral neck fracture - surgery done today - NPO after midnight - will hold amlodipine and HCT - per request of ortho T&C for 2 units, and Ancef 2 mg IV for OR ordered - SCD's for DVT prophylaxis, then as per ortho after surgery # Hypokalemia, most likely due to HCTZ, - Resolved (3.1 yesterday to 5.1 today) - Resume hydrochlorothiazide tomorrow - Initially treated with potassium and IV fluid (as well as an oral dose evening of admission), will now discontinue potassium from IV fluid # Leukocytosis, may be reactive due to stress, no evidence of infection, UA and CXR negative -Improved to 10.2 this a.m. # Mildly elevated RBS of 132 -FBS 112 today # Chronic HTN - held Amlodipine and hydrochlorothiazide prior to surgery today, resume tomorrow - cont Atenolol # "Anxiety" (per patient) vs Chr insomnia -Hospital pharmacy does not have Chloraxepate, Xanax substituted VTE Mechanical Devices: Intermittant Pneumatic CD Resuscitation Status: CPR: Attempt Resuscitation Janett Qureshi MD Feb 09, 2017 16:12 Janett Qureshi MD Feb 09, 2017 16:12
--- NOTE | 2017-02-09 16:20 | NUR ---
Pt arrived from PACU Report taken from LOIDA Smith. Patient arrived to unit at 1610 A/O, VSS, wedge in place, meade patent. Denies pain at this time. Decreased sensation in BLE secondary to spinal anesthesia, DAREK. Reports feeling cold and with shivering. Bundled patient with warm blankets to increase body temperature. Denies pain.
[2017-02-09] MEDS: Ketorolac 15 mg/mL Inj IVPUSH PRN (17:12)
[2017-02-09] MEDS: Sodium Chloride LOK Flush 10 mL Syringe IV SCH (17:15)
[2017-02-09] MEDS: 0.9% Sodium Chloride 1,000 ML IV SCH (17:19)
[2017-02-09] MEDS: CeFAZolin Inj 1 GM in IV Premix 1 EACH IV SCH (20:16)
[2017-02-09] MEDS: Erythromycin 0.5% 1 Gm Ophthalmic Ointment BOTH_EYES SCH (21:00)
[2017-02-09] MEDS ORDERED: Erythromycin 0.5% 1 Gm Ophthalmic Ointment BOTH_EYES SCH (21:00)
[2017-02-09] MEDS: Senna-Docusate 8.6-50 mg Tablet PO SCH (21:53)
[2017-02-09] MEDS: ALPRAZolam 0.5 mg Tablet PO SCH (21:53)
[2017-02-09] MEDS: REFRESH OPTH AFFECT_EYE SCH (21:58)
[2017-02-10] MEDS: Sodium Chloride LOK Flush 10 mL Syringe IV SCH ×3 (00:19→16:35)
[2017-02-10 00:47] VITALS: BP 123/65; PULSE 85; RESP 18; O2SAT 94
--- NOTE | 2017-02-10 04:08 | NUR ---
Activity Pt. reports passing flatus, but has yet to pass a BM. Pt. reports only moderate pain when turning in bed. Pt. has denied need for pain meds so far this shift, and has been sleeping throughout shift. Will continue to monitor. Addendum: 02/10/17 at 0426 by BARBRA DONAHUE RN Pt. woke up and was in pain. IV Toradol given for pain.
[2017-02-10] MEDS: CeFAZolin Inj 1 GM in IV Premix 1 EACH IV SCH (04:13)
[2017-02-10] MEDS: Ketorolac 15 mg/mL Inj IVPUSH PRN (04:20)
[2017-02-10] MEDS: Lactated Ringer's 1,000 ML IV SCH ×2 (05:25→14:06)
[2017-02-10] MEDS: Ascorbic Acid 500 mg Tablet PO SCH ×4 (06:00→22:15)
[2017-02-10] MEDS: 0.9% Sodium Chloride 1,000 ML IV SCH ×2 (06:01→14:06)
[2017-02-10 06:10] VITALS: BP 107/65; PULSE 88; RESP 16; O2SAT 95
[2017-02-10 06:57] LABS: BASOPHILS % (AUTO) 0.2 % (0-3); EOSINOPHILS % (AUTO) 0 % (0-5); MONOCYTES % (AUTO) 22.9 % (4-12); Mean Corpuscular Hemoglobin 29.2 pg (27.0-35.0); Mean Corpuscular Volume 85.8 fL (81-100); NEUTROPHILS % (AUTO) 65.9 % (40-74); Platelet Count 184 bil/L (150-400)
--- NOTE | 2017-02-10 07:14 | PCM.PNMED ---
Subjective Date of Service Feb 10, 2017 Subjective Only mild hip pain, no chest pain or SOB Exam Vital Signs Vital Sign - Last Date Time Temp Pulse Resp B/P Pulse Ox O2 Delivery O2 Flow Rate FiO2 02/10/17 06:10 36.9 88 16 107/65 95 Room Air Intake and Output 02/09/17 02/09/17 02/10/17 Cumulative From/Thru 15:00 23:00 07:00 02/08/17 11:00 - 02/10/17 06:10 Intake Total 1150 ml 1166 ml 1189 ml 4938 ml Output Total 850 ml 200 ml 300 ml 1870 ml Balance 300 ml 966 ml 889 ml 3068 ml Intake Oral 600 ml 200 ml 1046 ml IV Total 1150 ml 566 ml 989 ml 3892 ml Output Urine Total 650 ml 200 ml 300 ml 1670 ml Estimated Blood Loss 200 ml 200 ml # Bowel Movements 0 0 0 Exam General: Arrouses easily from sleep, no acute distress Heart: Regular Lungs: Clear anteriorly and laterally Abdomen: Soft, non-tender Extremities: No pedal edema IVs and Medications Medications Reviewed: Medications were reviewed in detail Lab and Diagnostics Result Diagram: 02/10/17 0610 02/09/17 0550 Assessment & Plan # Left femoral neck fracture - POD #1 - Lovenox for DVT prophylaxis # Hypokalemia, most likely due to HCTZ, - Resolved (3.1 on admit to 5.1 yesterday) - Resume hydrochlorothiazide today - Initially treated with potassium in IV fluid (as well as an oral dose evening of admission) - Will add daily po dose to prevent recurrence # Leukocytosis, most likely reactive due to stress, no evidence of infection, UA and CXR negative -Improved to 10.2 morning after admission # Mildly elevated RBS of 132 -FBS 112 morning after admission # Chronic HTN - held Amlodipine and hydrochlorothiazide prior to surgery, resume today - cont Atenolol # "Anxiety" (per patient) vs Chr insomnia -Hospital pharmacy does not have Chloraxepate, Xanax substituted Disposition: Assume to SNF in approx 2 days Pain Evaluation: Adequate Pain Control VTE Mechanical Devices: Intermittant Pneumatic CD Resuscitation Status: CPR: Attempt Resuscitation Janett Qureshi MD Feb 10, 2017 07:14
[2017-02-10] MEDS: Senna-Docusate 8.6-50 mg Tablet PO SCH ×2 (08:40→20:26)
--- NOTE | 2017-02-10 11:35 | NUR ---
EVELYN signed by pt VERNA Lowery
--- NOTE | 2017-02-10 11:50 | NUR ---
Social Work: Initial Assessment Data: EMR Reviewed. Pt is a 86 y/o female admitted for left hip fracture per H&P. Pt's PCP is Dr. Filiberto Frye MD. SW met with pt and to conduct initial assessment at bedside. Patient was oriented and alert x3. SW confirmed the following: Pt's insurance is Medicare and [employer] Plan Supplemental. Pt has no VA or LTC insurance. Pt has never had HH or SNF services. Pt is independent at baseline and has no DME. Pt drives. SW discussed the potential need for HH or SNF services at discharge for rehabilitation. Pt was agreeable to SNF services for rehabilitation. SW provided SNF choice list to pt. Pt stated that she is leaning towards [facility] but would like to review choice list. Pt was concerned that Medicare would not pay for her stay at a SNF. SW explained that because pt did not have an elective surgery, and surgery was due to fracture from a fall, Medicare would pay for stay at a SNF if she qualifies after PT evaluation. PT has been ordered and SW will follow up with pt after PT to determine SNF choice. SW will continue to follow. Assessment: Pt will likely need SNF for rehabilitation. Pt is reviewing SNF choice list. SW will confirm SNF choice and provide referral after PT evaluation. Plan: SW will provide SNF referral once pt has decided where she would like to go. SW will continue to follow. VERNA Lowery Addendum: 02/10/17 at 1202 by KAROLYN MORA SS Amended: Links added. Addendum: 02/10/17 at 1721 by SAMMIE CUMMINGS SS ACIDITY TESTER reviewed PT recommendation for SNF; pt not able to ambulate at this time. ACIDITY TESTER met with pt at bedside to review PT recommendations. SNF CHOICE LIST PROVIDED. Pt states that she does not want to go out of the [place] area. ACIDITY TESTER reviewed facilities in these areas. Pt is agreeable to referrals being sent to [facility] and [facility]. She will discuss her first and second preference with her . ACIDITY TESTER faxed referrals to both facilities and provided access PPW on chart. PASSR In folder
--- NOTE | 2017-02-10 11:54 | NUR ---
RUE swelling during AM assessment noticed RUE swelling, appeared fluid filled at the location of peripheral IV. patient reports that swelling is new this am. Denies pain or discomfort. IV site flushed without difficulty or pain. IV fluids stopped and Peripheral IV DC'd cath tip intact. new line started left FA. patient stated that she isn't sure if she fell on right arm at time of her initial fall causing her hip fracture. Concern for possible DVT vs IV fluid infiltrate. Dr Qureshi notified of swelling. Dr Qureshi assessed arm and wants to wait and see if swelling decreases. continue to monitor.
[2017-02-10 13:20] VITALS: BP 134/70; PULSE 90; RESP 16; O2SAT 100
--- NOTE | 2017-02-10 14:29 | PCM.PNORTH ---
Subjective Date of Service: Feb 10, 2017 Visit Information: Reason for Visit Left Hip Fracture Surgery/Surgery Date LEFT HIP HEMIARTHROPLASTY 02/09/17 Post-Op Day # 1 Date of Admission: Feb 08, 2017 at 15:25 Hospital Day # Subjective Patient is seen sitting up in bed. She complains more of right upper extremity swelling than she does of the left hip. She states the swelling started today. There had been IV in that arm but that has since been removed. She has been elevating the arm on pillows and feels that the swelling is going down. She denies any pain or stiffness. She exhibits full range of motion of the elbow. The patient has been up with physical therapy. Postop General: No Shortness of Breath, No Chest Pain, Good Appetite Pain Management: PO Objective Exam Objective Patient is seen sitting up in bed, right upper extremity elevated on pillows Vital Signs and I/O Vital Sign - Last Date Time Temp Pulse Resp B/P Pulse Ox O2 Delivery O2 Flow Rate FiO2 02/10/17 13:20 37.0 90 16 134/70 100 Room Air Intake and Output 02/09/17 02/09/17 02/10/17 Cumulative From/Thru 15:00 23:00 07:00 02/08/17 11:00 - 02/10/17 06:10 Intake Total 1150 ml 1166 ml 1189 ml 4938 ml Output Total 850 ml 200 ml 300 ml 1870 ml Balance 300 ml 966 ml 889 ml 3068 ml Intake Oral 600 ml 200 ml 1046 ml IV Total 1150 ml 566 ml 989 ml 3892 ml Output Urine Total 650 ml 200 ml 300 ml 1670 ml Estimated Blood Loss 200 ml 200 ml # Bowel Movements 0 0 0 Lab & Micro Results Laboratory Tests Test 02/10/17 06:10 White Blood Count 9.1th/mm3 (3.8-10.1) Red Blood Count 3.80mil/mm3 (3.90-5.20) Hemoglobin 11.1g/dL (12.0-15.6) Hematocrit 32.6% (35.0-46.0) Mean Corpuscular Volume 85.8fL (81-100) Mean Corpuscular Hemoglobin 29.2pg (27.0-35.0) Mean Corpuscular Hemoglobin Concent 34.0% (32.0-37.0) Red Cell Distribution Width 14.4% (12.3-15.4) Platelet Count 184bil/L (150-400) Neutrophils (%) (Auto) 65.9% (40-74) Lymphocytes (%) (Auto) 10.9% (14-46) Monocytes (%) (Auto) 22.9% (4-12) Eosinophils (%) (Auto) 0% (0-5) Basophils (%) (Auto) 0.2% (0-3) Sodium Level 136mEq/L (134-144) Potassium Level 4.0mEq/L (3.5-5.2) Chloride Level 104mEq/L (97-108) Carbon Dioxide Level 21mmol/L (18-29) Blood Urea Nitrogen 12mg/dL (8-27) Creatinine 0.49mg/dL (0.57-1.00) Estimat Glomerular Filtration Rate 172mL/min (>59) Glucose Level 120mg/dL (60-99) Calcium Level 8.4mg/dL (8.5-10.1) Result Diagram: 02/10/1760902/10/17609 General Appearance: Alert, Oriented X3, Cooperative, No Acute Distress Extremities: Distal Pulses Palpable, No Compartment Syndrom Noted, Thigh & Calf Soft/Nontender, Other (right upper extremity: Moderate swelling upper arm to just below the elbow. Patient exhibits full range of motion. The elbow is nontender.) Postop Sensory Motor: Distal Motor Intact, NVI Distally Activity: Activity per PT, Ambulate with PT Catheters: Urethral 2 Way Jones Assessment & Plan Impression POD #1 status post left hip hemiarthroplasty Right upper extremity swelling due to IV infiltration Problems: Plan Weightbearing: Weightbearing as tolerated with walker DVT prophylaxis: Lovenox 40 mg subcutaneous 3 weeks followed by aspirin 325 mg twice a day 3 more weeks Physical therapy for transfers, progressive ambulation, therapeutic exercise Continue to elevate the right upper extremity. Wound care: PA will change dressing on postop day 2 [Saturday]. Reinforce if needed. DC Jones today Apply knee high OUMAR hose today At discharge, DC abduction pillow and use regular pillow between the knees when in bed Hip precaution positions to prevent dislocation: No flexing forward past 90, no crossing the legs at the knee, no active abduction for 6 weeks after surgery Discharge plan: Discharge to SNF in 1-2 days when medically stable Follow-up plan: In 2 weeks at [facility] with PATY for wound check and at [address] Kim with x-rays Pain Management: [place], Toradol, Vistaril VTE Prophylaxis: Sub-Q Enoxaparin, SCDs Resuscitation Status: CPR: Attempt Resuscitation Ivette North PA-C Feb 10, 2017 14:29
--- NOTE | 2017-02-10 14:34 | NUR ---
Evaluation completed. Please go to "Notes" then click on "Assessments and Notes" (bottom left corner of screen). Then select appropriate discipline tab on top of screen.
--- NOTE | 2017-02-10 17:29 | NUR ---
[facility] has accepted with Dr. Jimenez to follow
--- NOTE | 2017-02-10 17:52 | NUR ---
RUE swelling re-assess Elevated RUE on pillows throughout day. patient reports decreased swelling. upon assessment, RUE noticeably smaller/decreased swelling. patient still denies any pain/discomfort with RUE. continue to monitor.
[2017-02-10] MEDS: ALPRAZolam 0.5 mg Tablet PO SCH (20:20)
[2017-02-10] MEDS: REFRESH OPTH AFFECT_EYE SCH (20:21)
[2017-02-10] MEDS: Erythromycin 0.5% 1 Gm Ophthalmic Ointment BOTH_EYES SCH (20:22)
[2017-02-10 20:31] VITALS: BP 124/72; PULSE 94; RESP 16; O2SAT 94
[2017-02-11] MEDS: Sodium Chloride LOK Flush 10 mL Syringe IV SCH ×2 (00:55→08:08)
--- NOTE | 2017-02-11 01:07 | NUR ---
Pain Patient states her pain is at about a 4-5/10, but doesn't feel she needs any medication for pain at this point. Patient was encouraged to not let pain get to a point that was excessive before taking medication to reduce it. Patient appears comfortable and is sleeping in bed. Patient's states she thinks the swelling in her right arm has decreased since day shift. Patient A&OX3. vitals stable.
[2017-02-11] MEDS: Lactated Ringer's 1,000 ML IV SCH (01:25)
[2017-02-11] MEDS: 0.9% Sodium Chloride 1,000 ML IV SCH (04:06)
[2017-02-11] MEDS: Ascorbic Acid 500 mg Tablet PO SCH ×3 (06:33→12:33)
[2017-02-11 06:37] VITALS: BP 118/65; PULSE 72; RESP 18; O2SAT 94
[2017-02-11] MEDS: Senna-Docusate 8.6-50 mg Tablet PO SCH (08:14)
--- NOTE | 2017-02-11 08:26 | PCM.PNORTH ---
Subjective Date of Service: Feb 11, 2017 Visit Information: Reason for Visit Left Hip Fracture Surgery/Surgery Date LEFT HIP HEMIARTHROPLASTY 02/09/17 Post-Op Day # Date of Admission: Feb 08, 2017 at 15:25 Hospital Day # Subjective Patient reports she is not having much pain. She is only taking 1 [place] or just Tylenol. She feels the right upper extremity swelling is going down. It is not painful. She has full motion of the arm. Jones was discontinued this morning. Postop General: No Shortness of Breath, No Chest Pain Pain Management: PO Objective Exam Objective The patient is seen lying in bed. Vital Signs and I/O Vital Sign - Last Date Time Temp Pulse Resp B/P Pulse Ox O2 Delivery O2 Flow Rate FiO2 02/11/17 06:37 37.0 72 18 118/65 94 Room Air Intake and Output 02/10/17 02/10/17 02/11/17 Cumulative From/Thru 15:00 23:00 07:00 02/08/17 11:00 - 02/11/17 06:37 Intake Total 1424 ml 310 ml 6672 ml Output Total 1000 ml 750 ml 3620 ml Balance 424 ml -440 ml 3052 ml Intake Oral 901 ml 310 ml 2257 ml IV Total 523 ml 4415 ml Output Urine Total 1000 ml 750 ml 3420 ml Estimated Blood Loss 200 ml # Bowel Movements 0 0 0 Result Diagram: 02/10/17 0610 02/10/17 0610 General Appearance: Alert, Oriented X3, Cooperative, No Acute Distress Extremities: Distal Pulses Palpable, No Compartment Syndrom Noted, Tenderness/ Swelling Noted (left hip) Postop Sensory Motor: Distal Motor Intact, NVI Distally SURGICAL WOUND : Wound Location/Description Lateral left hip: Surgical dressing is removed. There is mild serous drainage on the bandage. There is mild ecchymosis. There is moderate swelling of the thigh. Thigh is mildly tender. There is no erythema present. Steri-Strips are intact. Wound is cleansed with hydrogen peroxide an Island dressing is applied. Activity: Activity per PT, Ambulate with PT Catheters: None Assessment & Plan Impression Status post left hip hemiarthroplasty Problems: Plan Weightbearing: Weightbearing as tolerated with walker DVT prophylaxis: Lovenox 40 mg subcutaneous 3 weeks followed by aspirin 325 mg twice a day 3 more weeks Physical therapy for transfers, progressive ambulation, therapeutic exercise Continue to elevate the right upper extremity. Wound care: Dressing changed by PA today. Nursing may change dressing as needed if saturated. Apply knee high OUMAR hose today At discharge, DC abduction pillow and use regular pillow between the knees when in bed Hip precaution positions to prevent dislocation: No flexing forward past 90, no crossing the legs at the knee, no active abduction for 6 weeks after surgery Discharge plan: Discharge to SNF when medically stable Follow-up plan: In 2 weeks at [facility] with PA for wound check and at [address] Kim with x-rays Pain Management: Tylenol, [place], Vistaril VTE Prophylaxis: Sub-Q Enoxaparin, SCDs Resuscitation Status: CPR: Attempt Resuscitation [place] BayIvette Patel PA-C Feb 11, 2017 08:26
--- NOTE | 2017-02-11 10:48 | NUR ---
Social Work-readiness for discharge: Data:EMR reviewed. Pt is on day 3 of hospitalization for left hip fracture per H&P. Pt is not medically stable anticipate later today or tomorrow. PT continues to recommend SNF. SW followed up with pt and at bedside, SW role explained. Pt states her preference for SNF would be [facility] (1st choice) and [facility]( second). SW explained message has been left for [email or web address]. SW also spoke with daughter Margarette [phone] and she is in agreement with plan. Paperwork and PASRR In the chart. SW will continue to follow. Assessment:Pt who would benefit from SNF. Plan:[email or web address] (1st choice) has been faxed and [facility]( second) has accepted. Paperwork and PASRR In the chart. SW will continue to follow. VERNA Kaur
[2017-02-11] MEDS ORDERED: CLOR7.5T3 PO (10:52)
[2017-02-11] MEDS ORDERED: ASPI325T32 PO (10:52)
[2017-02-11] MEDS ORDERED: DOCU-41 PO (10:52)
[2017-02-11] MEDS ORDERED: Acetaminophen PO (10:52)
[2017-02-11] MEDS ORDERED: POLY17PO6 PO (10:52)
[2017-02-11] MEDS ORDERED: Senna/Docusate Sodium PO (10:52)
[2017-02-11] MEDS ORDERED: MAGN800O PO (10:52)
[2017-02-11] MEDS ORDERED: Bisacodyl RECTAL (10:52)
[2017-02-11] MEDS ORDERED: HYDR-4003 PO (10:52)
[2017-02-11] MEDS ORDERED: ENOX40DI8 SUBQ (10:52)
--- NOTE | 2017-02-11 10:54 | NUR ---
[facility] can accept with Dr. Mcgregor to follow. Tasneem Washington MSW
--- NOTE | 2017-02-11 10:59 | PCM.DIMED ---
Discharge Instructions Date of Service Feb 11, 2017 Dates of Hospitalization Feb 08, 2017 at 15:25 Discharge Diagnosis Discharge Diagnosis # Acute displaced left femoral neck fracture, present on admission. - Post left hip cemented bipolar hemiarthroplasty on 02/09/17 # Acute hypokalemia, present on admission. Resolved. # Acute leukocytosis, present on admission, most likely reactive due to stress. Resolved. # Chronic hypertension. # History of anxiety and possible insomnia. Stable Medication Instructions DVT prophylaxis: Lovenox 40 mg subcutaneous 3 weeks followed by aspirin 325 mg twice a day 3 more weeks Diet Low fat, Low Sodium, Heart Healthy Activity Other (per physical therapy as noted below) Patient Instructions Weightbearing: Weightbearing as tolerated with walker Physical therapy for transfers, progressive ambulation, therapeutic exercise Continue to elevate the right upper extremity. Wound care: Nursing may change dressing as needed if saturated. Apply knee high OUMAR hose DC abduction pillow and use regular pillow between the knees when in bed Hip precaution positions to prevent dislocation: No flexing forward past 90, no crossing the legs at the knee, no active abduction for 6 weeks after surgery Follow-up plan 1. Followup with primary care provider in 1-2 weeks 2. Follow[facility]up in 2 [facility] at [facility] with PA for wound check and at [address] Kim with x-rays [address] [address] Follow-up Provider: Filiberto rFye DO Provider: Shyam Kim MD, Masoud Feb 11, 2017 10:59
--- NOTE | 2017-02-11 13:32 | NUR ---
Social Work-discharge: Data:EMR reviewed. Pt is on day 3 of hospitalization for left hip fracture per H&P. Pt is medically stable for discharge. PT has recommended SNF placement. Pt has been accepted at [facility]. JARED faxed orders and created packet. JARED confirmed with [facility] at [facility] that they are able to accept today with Dr. Mcgregor to follow. [facility] arranged transport for 1500. JARED updated pt at bedside and also daughter Margarette via phone. Pt to update . RN,UC,pt/family, and [facility] all updated and agreeable to plan. Assessment:pt who would benefit from SNF. Plan:Pt to discharge to [facility] today via cabualnce at 1500. RN,UC,pt/family, and [facility] all updated and agreeable to plan. VERNA Kaur Addendum: 02/11/17 at 1404 by DANIELLE SALINAS SS JARED also called [facility] [phone] and informed him of discharge place and time. VERNA Kaur
--- NOTE | 2017-02-11 14:01 | NUR ---
Faxed orders to [facility] and they will transport patient at 1500. Updated B[employer] DES[employer] PRINTER and RN
--- NOTE | 2017-02-11 15:33 | NUR ---
Discharge To [facility] SNF via cabulance at 15:30. Report phoned to Galilea at [facility]. IV discontinued intact. All belongings sent with pt.
--- NOTE | 2017-02-11 15:50 | PCM.DC.MED ---
Discharge Summary Date of Service Feb 11, 2017 Dates of Hospitalization Date of Hospital Admission Feb 08, 2017 at 15:25 Date of Discharge: Feb 11, 2017 Providers: Admitting Physician: Janett Qureshi MD Primary Care Physician: Filiberto Frye DO Attending Physician: Janett Qureshi MD Diagnosis at Time of Discharge Diagnosis at Time of Discharge # Acute displaced left femoral neck fracture, present on admission. - Post left hip cemented bipolar hemiarthroplasty on 02/09/17 # Acute hypokalemia, present on admission. Resolved. # Acute leukocytosis, present on admission, most likely reactive due to stress. Resolved. # Chronic hypertension. # History of anxiety and possible insomnia. Stable Consultations 1. Ortho (Dr. Kim) Procedures XRay, CTs & MRIs Date of Service: 02/08/17 1144 PROCEDURE: X-RAY PELVIS, ONE OR TWO VIEWS ([id number]) IMPRESSION: Moderately displaced left femoral neck fracture. Dictated by: Armin Jett M.D. on 02/08/2017 at 13:09 Approved by: Armin Jett M.D. on 02/08/2017 at 13:09 Date of Service: 02/08/17 1144 PROCEDURE: X-RAY LEFT FEMUR, TWO VIEWS ([id number]) IMPRESSION: Left femoral neck fracture. Dictated by: Armin Jett M.D. on 02/08/2017 at 13:10 Approved by: Armin Jett M.D. on 02/08/2017 at 13:10 Date of Service: 02/09/17 1436 PROCEDURE: X-RAY PELVIS W/LAT HIP (LT) ([id number]) IMPRESSION: Normal alignment after left total hip arthroplasty. 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 Dictated by: Kal Cherry M.D. on 02/09/2017 at 15:11 Approved by: Kal Cherry M.D. on 02/09/2017 at 15:12 Brief History Earlier today she was making the bed and tripped on a part of the bedspread that was down on the floor. She fell and immediately noted left hip pain. She is not aware of any other injuries and says she did not hit her head. Prior to falling and she did not note lightheadedness, loss of consciousness, palpitations or chest pain. Hospital Course # Acute displaced left femoral neck fracture, present on admission. - Post left hip cemented bipolar hemiarthroplasty on 02/09/17 # Acute hypokalemia, present on admission. Resolved. # Acute leukocytosis, present on admission, most likely reactive due to stress. Resolved. # Chronic hypertension. stable # History of anxiety and possible insomnia. Stable by day of discharge lungs CTA bilat. Abdomen s, nt, nd, +bs. Neuro exam non- focal Exam Vital Signs (Last) Date Time Temp Pulse Resp B/P Pulse Ox O2 Delivery O2 Flow Rate FiO2 02/11/17 13:21 Room Air 02/11/17 06:37 37.0 72 18 118/65 94 Test 02/08/17 12:38 02/08/17 12:51 02/08/17 13:35 02/10/17 06:10 Prothrombin Time 10.4sec (8.1-12.5) Prothromb Time International Ratio 0.97ratio Total Bilirubin 0.5mg/dL (0.0-1.2) Aspartate Amino Transf (AST/SGOT) 21U/L (0-50) Alanine Aminotransferase (ALT/SGPT) 15U/L (0-32) Alkaline Phosphatase 108U/L (25-165) Total Protein 7.2g/dL (6.4-8.4) Albumin 4.6g/dL (3.4-5.0) Hold Pettit Top Tube Received (Received) Urine Color Straw (YELLOW) Urine Appearance Hazy (CLEAR,HAZY) Urine pH 7.5 (5.0-8.0) Urine Specific Helm 1.015 (1.003-1.035) Urine Protein Negativemg/dL (NEG,TRACE) Urine Glucose (UA) Negativemg/dL (NEGATIVE) Urine Ketones Negativemg/dL (NEGATIVE) Urine Occult Blood Negative (NEGATIVE) Urine Nitrite Negative (NEGATIVE) Urine Bilirubin Negative (NEGATIVE) Urine Urobilinogen Normalmg/dL (NORMAL) Urine Leukocyte Esterase Negative (NEGATIVE) Urine RBC 0-2/hpf (0-2) Urine WBC 0-5/hpf (0-5) Urine Epithelial Cells Occasional/hpf (NONE-MOD) Urine Crystals Amorphous phosphates Urine Bacteria None/hpf (NONE-FEW) Urine Hyaline Casts None/lpf (NONE) Urine Granular Casts None seen (NONE SEEN) Urine Waxy Casts None seen (NONE SEEN) Urine Red Blood Cell Casts None seen (NONE SEEN) Urine White Blood Cell Casts None seen (NONE SEEN) Urine Mucus None seen (None Seen) Urine Trichomonas None seen (NONE SEEN) Urine Yeast None (NONE SEEN) Urinalysis Comment None Urine Culture Reflexed Not indicated White Blood Count 9.1th/mm3 (3.8-10.1) Red Blood Count 3.80mil/mm3 (3.90-5.20) Hemoglobin 11.1g/dL (12.0-15.6) Hematocrit 32.6% (35.0-46.0) Mean Corpuscular Volume 85.8fL (81-100) Mean Corpuscular Hemoglobin 29.2pg (27.0-35.0) Mean Corpuscular Hemoglobin Concent 34.0% (32.0-37.0) Red Cell Distribution Width 14.4% (12.3-15.4) Platelet Count 184bil/L (150-400) Neutrophils (%) (Auto) 65.9% (40-74) Lymphocytes (%) (Auto) 10.9% (14-46) Monocytes (%) (Auto) 22.9% (4-12) Eosinophils (%) (Auto) 0% (0-5) Basophils (%) (Auto) 0.2% (0-3) Sodium Level 136mEq/L (134-144) Potassium Level 4.0mEq/L (3.5-5.2) Chloride Level 104mEq/L (97-108) Carbon Dioxide Level 21mmol/L (18-29) Blood Urea Nitrogen 12mg/dL (8-27) Creatinine 0.49mg/dL (0.57-1.00) Estimat Glomerular Filtration Rate 172mL/min (>59) Glucose Level 120mg/dL (60-99) Calcium Level 8.4mg/dL (8.5-10.1) Discharge Medications Discharge Medications ([Senna/Docusate Sodium]) 1 TABLET TABLET 1 TABLET PO BID Prescribed by: VALENTINA GASTELUM MD Amlodipine (Amlodipine) 5 Mg Tablet 5 MG PO DAILY (Reported) Ascorbic Acid (Vitamin C) 250 Mg Tab.chew 250 MG PO QID (Reported) Aspirin (Aspirin) 325 Mg Tablet 325 MG PO DAILY Start taking after finishing the course of Lovenox in 3 weeks After taking Aspirin 325mg for 3 weeks may resume taking Aspirin 81mg daily as before. Prescribed by: VALENTINA GASTELUM MD Atenolol (Atenolol) 50 Mg Tablet 50 MG PO BID (Reported) Clorazepate Dipotassium (Clorazepate Dipotassium) 7.5 Mg Tablet 7.5 MG PO HS Prescribed by: VALENTINA GASTELUM MD Docusate Sodium (Colace) 100 Mg Capsule 100 MG PO BID Prescribed by: VALENTINA GASTELUM MD Enoxaparin Sodium (Enoxaparin Sodium) 40 Mg/0.4 Ml Syringe 40 MG SUBQ Q24 Prescribed by: VALENTINA GASTELUM MD Erythromycin Ophth Oint (Erythromycin Ophth Oint) 3.5 Gm Oint...g. 1 APPL OP HS (Reported) Hydrochlorothiazide (Hydrochlorothiazide) 25 Mg Tablet 12.5 MG PO DAILY ( Reported) Mineral Oil/Petrolatum,White (Refresh P.m. Ointment) 3.5 Gm Oint...g. 3.5 GM OP DAILY (Reported) Multivits-Min/FA/Lycopene/Lut (Centrum Silver Tablet) 1 Each Tablet 1 EACH PO DAILY (Reported) As needed ([Bisacodyl]) 10 MG SUPP 10 MG RECTAL DAILY PRN PRN For Constipation Prescribed by: VALENTINA GASTELUM MD ([Acetaminophen]) 325 MG TABLET 650 MG PO Q4H PRN PRN Mild Pain (1-3) or Headache Prescribed by: VALENTINA GASTELUM MD Albuterol HFA (Proair HFA) 8.5 Gm Hfa.aer.ad 2 PUFFS INHALATION Q4H PRN PRN For Shortness of Breath (Reported) Hydrocodone-Acetaminophen 5-325 mg (Hydrocodone-Acetaminophen 5-325 mg) 1 Each Tablet 1-2 TABLET PO Q4H PRN PRN For Moderate Pain Prescribed by: VALENTINA GASTELUM MD Magnesium Hydroxide (Milk of Magnesia) 2,400 Mg/10 Ml Oral.susp 30 ML PO HS PRN PRN For Constipation Prescribed by: VALENTINA GASTELUM MD Polyethylene Glycol 3350 (Miralax) 17 Gm Powd.pack 17 GM PO DAILY PRN PRN For Constipation Prescribed by: VALENTINA GASTELUM MD Additional med instructions DVT prophylaxis: Lovenox 40 mg subcutaneous 3 weeks followed by aspirin 325 mg twice a day 3 more weeks Followup Plan Disposition: SNF Follow-up plan 1. Followup with primary care provider in 1-2 weeks 2. Follow-up in 2 weeks at [facility] with PA for wound check and at [address] Kim with x-rays [address] [address] Discharge Diet: Low fat, Low Sodium, Heart Healthy Discharge Activity: Other (per physical therapy as noted below) Patient Instructions Weightbearing: Weightbearing as tolerated with walker Physical therapy for transfers, progressive ambulation, therapeutic exercise Continue to elevate the right upper extremity. Wound care: Nursing may change dressing as needed if saturated. Apply knee high OUMAR hose DC abduction pillow and use regular pillow between the knees when in bed Hip precaution positions to prevent dislocation: No flexing forward past 90, no crossing the legs at the knee, no active abduction for 6 weeks after surgery Follow-up Provider: Filiberto Frye DO Provider: Shyam Kim MD Time spent 35 min copies to: Filiberto Frye DO; Shyam Kim MD, Masoud Feb 11, 2017 15:50
== END 2017-02-11 15:29 | DRG 470 ==
LOC: SED 10:54 → EDBD 10:54 → OSC 15:25
PROVIDERS: ADMIT Internal Medicine; ATTEND Internal Medicine
PROC: 0SRS0J9 Replacement of Left Hip Joint, Femoral Surface with Synthetic Substitute, Cemented, Open Approach (ICD-10-PCS; principal; 2017-02-09 10:00)
DX: S72.002A Fracture of unspecified part of neck of left femur, initial encounter for closed fracture (principal); E87.6 Hypokalemia; W18.09XA Striking against other object with subsequent fall, initial encounter; Y92.013 Bedroom of single-family (private) house as the place of occurrence of the external cause; I10 Essential (primary) hypertension; F41.9 Anxiety disorder, unspecified